=== PATIENT | female | born 1970 | race Caucasian/White ===

== ENCOUNTER 2016-06-03 23:38 | Inpatient (IN) | payer OTHER ==
--- NOTE | ~2016-06-03 | DS ---
Unit #: [id number] #: [id number] Patient: LUDIN MOHAN [id number] [facility] [address] [place] [address] [id number] MR#: [id number] NAME: LUDIN MOHAN ROOM: [facility] Age: 45 Sex: F Admission Date: 06/03/2016 : 1970 Discharge Date: 06/07/2016 Attending Physician: Atif Koenig M.D. DISCHARGE SUMMARY REASON FOR ADMISSION Suicidal ideation. DIAGNOSTIC STUDIES LABORATORY RESULTS: Urine drug screen positive for opioids and benzodiazepines. HOSPITAL COURSE The patient was admitted to inpatient unit on 06/03/2016 and discharged on 06/07/2016. The patient was treated on the inpatient unit with chemical dependency group, expressive therapy, medication management, psychoeducation, and psychotherapy. The patient responded well with the above modalities of treatment. Subsequently, the patient was discharged with a plan to follow up in outpatient program. DISCHARGE MEDICATIONS Celexa 20 mg daily for depression and trazodone 100 mg at bedtime for sleep. DISCHARGE DIAGNOSES Psychiatric: 1. Major depressive disorder, recurrent, severe. 2. Opioid use disorder, severe, F11.20. Secondary diagnosis: Deferred. Medical diagnosis: Please refer to H and P. Stressors: Psychosocial stressors. DISCHARGE INSTRUCTIONS The patient is to follow up in outpatient clinic as per social services designee. CONDITION ON DISCHARGE The patient was pleasant and cooperative. Denied any psychotic symptom or any suicidal ideation. PROGNOSIS Guarded. DIET AND ACTIVITY As tolerated. Unit #: [id number] #: [id number] Patient: LUDIN MOHAN Dictated by... Shawn Bateman/nancy TD: 06/07/2016 19:23 JOB #: [id number] DISCHARGE SUMMARY Page 1 of 1 X Atif Koenig MD X DISCHARGE SUMMARY
--- NOTE | ~2016-06-03 | PN ---
Unit #: [id number] #: [id number] Patient: LUDIN MOHAN [id number] [facility] [address] [place] [address] [id number] MR#: [id number] NAME: LUDIN MOHAN ROOM: P204 Age: 45 Sex: F Admission Date: 06/03/2016 : 1970 Attending Physician: Atif Koenig M.D. Admitting Physician: Atif Koenig M.D. Primary Care Physician: Primary Care Physician Megan STRE[address] NOTES DATE 06/05/2016 DISCUSSION Ms. Powell is a 45-year-old female, seen on 06/05/2016. The patient interviewed, chart reviewed, and obtained information from the nursing staff. The patient continues to be sad, depressed, flat affect, withdrawn. The patient was staying in her room, still reporting severe anxiety, depression. REVIEW OF SYSTEMS Complete review of systems unremarkable. MENTAL STATUS EXAMINATION General appearance: Patient dressed casually. Attention span and concentration, fair. Oriented to place and person. Mood and affect, sad and dysphoric. Speech, monotone. Thought process, concrete. The patient denied any thoughts of harming self or others. Recent and remote memory, poor. Insight and judgment, poor. DIAGNOSES 1. Alcohol use disorder, severe. 2. Benzodiazepine abuse, severe. 3. Mood disorder, NOS. ASSESSMENT/PLAN Advised to continue with the current detox protocol, continue with current medication, if needed, still having withdrawal symptoms, such as tremors, sweating, anxiety, headache, nausea. Dictated by... Shawn Bateman/katja TD: 06/06/2016 09:07 JOB #: [id number] Unit #: [id number] #: [id number] Patient: LUDIN MOHAN PROGRESS NOTES Page 1 of 1 X Atif Koenig MD PROGRESS NOTE
--- NOTE | ~2016-06-03 | HP ---
Unit #: [id number] #: [id number] Patient: SHERRY MOHAN [id number] [facility] [address] [place] [address] [id number] I MR#: [id number] NAME: SHERRY MOHAN ROOM: P204 Age: 45 Sex: F Admission Date: 06/03/2016 : 1970 Attending Physician: Atif Koenig M.D. Admitting Physician: Atif Koenig M.D. Primary Care Physician: Primary Care Physician No HISTORY AND PHYSICAL HISTORY OF PRESENT ILLNESS Sherry is a 45 year old admitted to [address] [place] [address] because of her polysubstance abuse which includes IV heroin, benzodiazepines and alcohol. PAST MEDICAL HISTORY 1. Long history of polysubstance abuse to include IV heroin 2. Morbid obesity 3. History of kidney stones 4. High blood pressure 5. Diabetes mellitus 6. History of genital herpes 7. Hypothyroidism 8. Asthma PAST SURGICAL HISTORY 1. section x 2 2. Tubal ligation 3. Diagnostic pelvic lap x 2 ALLERGIES Penicillin SOCIAL HISTORY Smokes greater than one pack per day. Drinks alcohol frequently. Admits to a long history of illicit substance abuse to include IV heroin and benzodiazepines. FAMILY HISTORY Medically noncontributory. REVIEW OF SYSTEMS CONSTITUTIONAL: No fever or chills. HEENT: Denies any sore throat, ear pain or runny nose. CARDIOVASCULAR: Denies chest pain, irregular heart rhythm or palpitations. CHEST: Denies shortness of breath or cough. No hemoptysis. GASTROINTESTINAL: Denies nausea, vomiting, diarrhea or chronic constipation. ENDOCRINE: Denies history of increased thirst or urination. No recent significant weight loss or gain. GENITOURINARY: Denies dysuria, frequency, or hematuria. SKIN: Denies any rashes. HEMATOLOGIC: Denies history of increased bleeding or bruising. Unit #: [id number] #: [id number] Patient: SHERRY MOHAN MUSCULOSKELETAL: Denies any hot, swollen joints. No generalized muscle pain. NEUROLOGIC: Denies problems with vision or speech. No frequent, severe headaches. No numbness, tingling or weakness in any extremities. Denies loss of bladder or bowel control. CURRENT MEDICATIONS 1. Detox protocol 2. Valtrex 500 mg q day 3. Pepcid 20 mg q day 4. Protonix 40 mg q day 5. Norvasc 10 mg q day 6. Ditropan 5 mg b.i.d. 7. Synthroid 0.05 mg q day 8. Lopressor 100 mg b.i.d. 9. Diovan 320 mg q day 10. Nicotine patch 14 mg q day 11. Proventil inhaler p.r.n. 12. Ibuprofen p.r.n. PHYSICAL EXAMINATION GENERAL: Alert, morbidly obese, in no apparent distress. VITAL SIGNS: Blood pressure 152/90, heart rate 74, respirations 16, temperature 98.6. WEIGHT: 280 pounds. HEIGHT: 5'7". SKIN: Warm and dry without rash or lesion. HEENT: Normocephalic. TMs not viewed. Oral and nasal passages clear. Conjunctivae clear. Pupils equal, round and reactive to light and accommodation. Extraocular movements intact. NECK: Supple without lymphadenopathy or thyromegaly. HEART: Regular rate and rhythm without murmur. LUNGS: Clear. ABDOMEN: Soft, nontender. : Not done. EXTREMITIES: No evidence of cyanosis, clubbing or edema. Moves all extremities without focal deficit. NEUROLOGICAL: Grossly within normal limits. Cranial Nerves: II: Visual yee are intact. III, IV AND : Extraocular movements are intact. Pupils are equal, round and reactive to light. V: Facial sensation is grossly normal. VII: Facial movements and expression are normal. VIII: Auditory acuity grossly intact. IX, X: Uvula is midline. Phonation is normal. XI: Patient shrugs shoulders and turns head normally. XII: Tongue protrudes in the midline. Sensory and Motor Function: Sensory and motor sensation is grossly normal. Motor: moves all extremities well. Coordination: Gait is normal. Deep Tendon Reflexes: Intact. IMPRESSION Psychiatric admission RECOMMENDATIONS PSYCHIATRIC: Per psychiatrist. MEDICAL: I see no contraindications to participating in facility's activities. Unit #: [id number] #: [id number] Patient: SHERRY MOHAN MEDICAL PROGNOSIS Good. MEDICAL CONDITION Stable. Dictated by... Jaz Aviles P.A.-C. for Shawn Reyes/pj TD: 06/04/2016 22:54 JOB #: [id number] HISTORY AND PHYSICAL Page 1 of 1 X Jaz Aviles HISTORY AND PHYSICAL
--- NOTE | ~2016-06-03 | PN ---
Unit #: [id number] #: [id number] Patient: LUDIN MOHAN [id number] [facility] [address] [place] [address] [id number] MR#: [id number] NAME: LUDIN MOAHN ROOM: P204 Age: 45 Sex: F Admission Date: 06/03/2016 : 1970 Attending Physician: Atif Koenig M.D. Admitting Physician: Atif Koenig M.D. Primary Care Physician: Megan Primary Care Physician DONTE PROGRESS NOTES DATE 06/06/2016 DISCUSSION Ms. Powell is a 45-year-old female seen on 06/06/2016. The patient was interviewed, chart reviewed and obtained information from the nursing staff. The patient was compliant and cooperative. Mood sad and dysphoric. Flat affect. Guarded. The patient did not show any aggressive behavior, but withdrawn, isolative, sad and flat affect. Complete review of systems unremarkable. MENTAL STATUS EXAMINATION General appearance, the patient was dressed casually. Attention span and concentration fair. Oriented to place and person. Mood and affect sad dysphoric. Speech monotone. Thought process concrete. The patient denied any thoughts of harming self or others. No psychotic symptoms. Recent and remote memory poor. Insight and judgment poor. DIAGNOSES 1. Major depressive disorder, recurrent. 2. Opiate use disorder, severe. ASSESSMENT/PLAN Advised to continue with current medication and therapy protocol. Will monitor response to medication and make further adjustment of medication. Dictated by... Shawn Bateman/elder TD: 06/07/2016 10:52 JOB #: [id number] Unit #: [id number] #: [id number] Patient: LUDIN MOHAN [facility] PROGRESS NOTES Page 1 of 1 X Atif Koenig MD PROGRESS NOTE
--- NOTE | ~2016-06-03 | PA ---
Unit #: [id number] #: [id number] Patient: LUDIN MOHAN [id number] [facility] [address] [place] [address] [id number] MR#: [id number] NAME: LUDIN MOHAN ROOM: P204 Age: 45 Sex: F Admission Date: 06/03/2016 : 1970 Date of Assessment: Attending Physician: Atif Koenig M.D. Admitting Physician: Atif Koenig M.D. Primary Care Physician: Primary Care Physician No PSYCHIATRIC ASSESSMENT INFORMANTS The patient's reliability, fair; chart reliability, good. CHIEF COMPLAINT Suicidal ideation and substance abuse. HISTORY OF PRESENT ILLNESS Ms. Powell is a 45-year-old female, presented with suicidal ideation with a plan to take an overdose. The patient has a history of inpatient treatment at [facility]. The patient has a history of depression and opioid abuse. The patient presented with suicidal ideation with a plan to overdose on heroin. The patient reports attempted to overdose on , when the EMS came to her and woke her up. The patient reports that she lost her job on Saturday and her boyfriend of 6 year left. The patient report snorting and shooting 1 g of heroin. The patient also reported drinking vodka fifth of vodka, last use Saturday, also reported using Xanax. The patient reported history of hepatitis C, hypothyroidism, hypertension, arthritis. Needing inpatient admission at this time for psychiatric stabilization. PAST PSYCHIATRIC HISTORY Remarkable for history of previous treatment as mentioned above. FAMILY HISTORY AND SOCIAL HISTORY The patient has a poor support system. Family psychiatric illness is remarkable for history of depression in mother. Alcohol abuse in father. No known history of any abuse. MEDICAL HISTORY Remarkable for history of arthritis, hypothyroidism, hepatitis C, hypertension, obesity. Musculoskeletal; muscle strength and tone, no atrophy or abnormal movement. Gait normal. MEDICATION HISTORY The patient is on Celexa, metoprolol, ibuprofen, levothyroxine, oxybutynin. ALLERGIES No known drug allergies. SUBSTANCE ABUSE HISTORY The patient is on tobacco, age of onset 15; alcohol, age of onset 20; opioid, age of onset 44; amphetamine, age of onset 30; benzodiazepine, age of onset 25. The patient reported IV drug use, history of hepatitis, Unit #: [id number] #: [id number] Patient: LUDIN MOHAN withdrawal symptom, depressed mood, muscle cramping, restlessness, diaphoresis. REVIEW OF SYSTEMS HEENT: Eyes, clear. Ears, nose, mouth, and throat; clear. CARDIOVASCULAR: Unremarkable. RESPIRATORY: Unremarkable. GI: Unremarkable. : Unremarkable. SKIN: Unremarkable. LYMPH NODE: Unremarkable. NEUROLOGIC: Unremarkable. ENDOCRINE: Unremarkable. HEMATOLOGIC: Unremarkable. ALLERGIC/IMMUNOLOGIC: Unremarkable. MUSCULOSKELETAL: Muscle strength and tone, no atrophy or abnormal movement. Gait normal. MENTAL STATUS EXAMINATION CONSTITUTIONAL: Measurement of vital signs; temperature 98.6, pulse 75, respirations 16, blood pressure 152/91. Height 5 feet 7 inches, weight 280 pounds. GENERAL APPEARANCE: The patient dressed casually. The patient did not show any facial deformity. MUSCULOSKELETAL: Please see above. PSYCHIATRIC EXAMINATION Description of speech; regular rate, normal volume, normal articulation. Description of thought process, goal directed. Description of association, intact. Description of abnormal psychotic thinking; the patient denied any hallucination or delusions, but suicidal ideation, depression, substance abuse. Description of the patient's judgment; concerning everyday activity, poor. Social situation, poor. Concerning psychiatric condition, poor. Complete mental status examination; oriented in time, place, and person. Recent and remote memory, fair. Attention span and concentration, fair. Language, able to name object and repeat phrases. Fund of knowledge, aware of current event, passive vocabulary intact. Mood and affect, sad and dysphoric. Insight and judgment, fair to poor. ASSETS AND LIABILITIES Assets, the patient is articulate, able to take care of her ADL. Liability; history of substance abuse, depression. ADMITTING DIAGNOSES Psychiatric: Major depressive disorder, recurrent, severe, F33.2; opioid use disorder, severe, F11.20. Secondary diagnosis: Deferred. Medical diagnosis: Please refer to H and P. Stressors: Psychosocial stressors. PSYCHIATRIC PLAN AND TREATMENT GOAL 1. Advised to admit the patient on the inpatient unit. Provide safe, supportive, and structured environment. Unit #: [id number] #: [id number] Patient: LUDIN MOHAN 2. Ordered labs; CBC, CMP, UA, and UDS. 3. Precaution for aggression, self-harm, detox monitoring. 4. Start with detox protocol and detox monitoring. Continue with home medication. If needed, consider further adjustment of medication. Treatment goal to attain euthymic mood, gain insight into her problem, and learn coping skills. DISCHARGE PLAN Plan to stabilize the patient and consider followup in outpatient program. ESTIMATED LENGTH OF STAY 3 to 5 days. Dictated by... Atif Koenig M.D. JACQUELINE/nancy TD: 06/05/2016 02:23 JOB #: [id number] PSYCHIATRIC ASSESSMENT Page 1 of 1 X Atif Koenig MD X PSYCHIATRIC ASSESSMENT
[2016-06-04 09:22] LABS: BASOPHIL# 0.1 X10e3 (0-0.3); BASOPHIL% 0.9 % (0-2.5); EOSINOPHIL# 0.4 X10e3 (0-0.7); EOSINOPHIL% 4.9 % (0.0-7.0); HEMATOCRIT 37.2 % (35.0-45.0); HEMOGLOBIN 11.5 gm/dL (12.0-16.0); LYMPHOCYTE# 2.6 X10e3 (1.0-3.5); LYMPHOCYTE% 35.3 % (17.0-45.0); MEAN CELL VOLUME 90.2 FL (83-96); MEAN CORPUSCULAR HEMOGLOBIN 27.8 PG (28-34); MEAN CORPUSCULAR HGB CONC 30.8 g/dL (30-36); MEAN PLATELET VOLUME 9.4 FL (6.5-11.5); MONOCYTE# 0.6 X10e3 (0-1.0); MONOCYTE% 7.4 % (3.0-12.0); NEUTROPHIL# 3.8 X10e3 (1.5-7.1); NEUTROPHIL% 51.5 % (40-75); PLATELET COUNT 250 X10e3 (140-420); RED BLOOD COUNT 4.13 X10e (3.90-5.30); RED CELL DISTRIBUTION WIDTH 15.4 % (11.0-15.5); WHITE BLOOD COUNT 7.5 X10e3 (4.0-10.5)
[2016-06-04 09:47] LABS: URINE APPEARANCE CLOUDY; URINE BILIRUBIN NEG (NEG); URINE BLOOD 2+ (NEG); URINE COLOR YELLOW; URINE GLUCOSE NEG (NEG); URINE KETONE TRACE (NEG); URINE LEUKOCYTE ESTERASE 2+ (NEG); URINE NITRATE POS (NEG); URINE PH 5.5 (5-8); URINE PROTEIN NEG (NEG); URINE SPECIFIC GRAVITY 1.021 (1.003-1.035); URINE UROBILINOGEN 0.2 MG/DL (NEG)
[2016-06-04 09:48] LABS: DIFF IND NO
[2016-06-04 09:49] LABS: ALBUMIN SERUM 3.2 g/dL (3.5-5.0); BILIRUBIN,TOTAL 0.4 mg/dL (0.2-2.0); BUN/CREATININE RATIO 17.5; CALCIUM SERUM 8.8 mg/dL (8.4-10.2); CREATININE SERUM 0.8 mg/dL (0.6-1.4); GLOM FILT RATE Estimated 89.1 mL/min (>60); POTASSIUM 3.9 mmol/L (3.5-5.1); PROTEIN TOTAL SERUM 5.9 g/dL (6.0-8.3)
[2016-06-04 09:50] LABS: THYROID STIMULATING HORMONE 15.12 uIU/ml (0.34-5.60)
[2016-06-04 09:50] LABS: URINE BACTERIA AUWI 4+ (NEGATIVE); URINE SQUAMOUS EPITHELIAL CELL MOD /[HPF]; UWBCS1 AUWI 25-50 (0-5)
[2016-06-04 09:57] LABS: FREE THYROXIN (T4) 0.59 ng/dL (0.58-1.64)
[2016-06-04 10:18] LABS: AMPHETAMINE NEG (NEG); BARBITURATES NEG (NEG); BENZODIAZEPINES POS (NEG); COCAINE NEG (NEG); MARIJUANA NEG (NEG); OPIATES POS (NEG); TRICYCLIC ANTIDEPRESSANTS POS (NEG); U METHADONE NEG (NEG)
== END 2016-06-07 11:42 | DRG 885 ==
LOC: P2S 23:38
PROVIDERS: Psychiatry & Neurology Psychiatry
PROC: HZ2ZZZZ Detoxification Services for Substance Abuse Treatment (ICD-10-PCS; principal; 2016-06-03)
DX: F33.2 Major depressive disorder, recurrent severe without psychotic features (principal); F11.20 Opioid dependence, uncomplicated; I10 Essential (primary) hypertension; E66.01 Morbid (severe) obesity due to excess calories; E11.9 Type 2 diabetes mellitus without complications; E03.9 Hypothyroidism, unspecified; J45.909 Unspecified asthma, uncomplicated; Z88.0 Allergy status to penicillin; F17.210 Nicotine dependence, cigarettes, uncomplicated
CPT/HCPCS: 80053; 80307; 81003; 84439; 84443; 85025; 86592